=== PATIENT | female | born 1950 | race Caucasian/White ===

== ENCOUNTER 2020-04-24 14:36 | Emergency (ER) | payer MEDICARE, SELFPAY ==
[2020-04-24 15:01] VITALS: BP 166/81; PULSE 75; RESP 14; TEMP 36.8; O2SAT 98; BMI 26.4
--- NOTE | 2020-04-24 15:22 | HMH.EDUTC ---
[facility] [place] Disposition Clinical Impression: Viral upper respiratory illness Disposition: Home, Self-Care Condition on Discharge: Good Instructions: Sore Throat, Preventing the Spread of Coronavirus Discharge Instructions Additional Instructions: You was given handout on instructions for Self Quarantine and Self isolation while awaiting your COVID test results and what to do if they are positive, make sure to follow instructions carefully to help prevent the spread of COVID19 *Monitor Temp, Over the counter Motrin or Tylenol as directed/as needed Tylenol every 4 hours and Motrin every 6 hours (as long as your family doctor has told you that you can take it) for fever or pain. and straight to ER if unable to lower temp less than 101.0 after medication given *Warm salt water gargles may help to soothe the throat *Throat Lozenges *Warm fluids like tea with honey may help to soothe the throat *Sleep elevated *Humidifier/Vaporizer *Flonase 2 sprays in each nostril daily but be aware that it may take 2-3 days before you notice improvement Your throat swab was sent for culture. Those results are typically sent to your primary care. Be sure to follow up in 2-3 days with your family doctor/primary care physician if no improvement so they can review those result and treat if necessary. If you don?t have a primary care doctor, I recommend you get one but in the mean time, you will have to return to a walk in clinic Follow up IMMEDIATELY for new or worsening symptoms or no Noticeable improvement over the next 48-72 hours. 911 for difficulty breathing or swallowing Prescriptions: Fluticasone Propionate [Flonase 50mcg nasal spray 16gm] 1 - 2 spr NS DAILY #1 bottle Transmission Status: Received by [facility] #[id number] Referrals: Rima Cohn [Primary Care Provider] - As needed Forms: Work/School Release Time of Disposition: 15:41 Medical Decision Making - Kai Inquiry Pt receiving controlled substance: No Kai was queried for this patient: No Vital Signs: 04/24/20 15:01 Temperature 98.2 F Temperature Source Oral Pulse Rate [Right Brachial] 75 Respiratory Rate 14 Blood Pressure [Right Arm] 166/81 H Blood Pressure Mean [Right Arm] 109 Blood Pressure Source [Right Arm] Automatic Cuff Blood Pressure Position [Right Arm] Sitting 02 Sat by Pulse Oximetry 98 Oxygen Delivery Method Room Air - Lab Data Lab results reviewed: Yes: I reviewed the patient's lab results. Orders (Tests/Meds): ORDERS Category Date Time Status Coronavirus 19 Swab (OUTPT) Routine Lab 04/24/20 14:53 Received [facility] [place] HPI - General Stated complaint: Had strept 2 wks ago, sore throat,COVID exposure Time Seen by Provider: 04/24/20 15:22 Mode of Arrival: Ambulatory Source of Information: Patient Limitations: No Limitations Description of Symptoms (Recalled from Triage Doc. by RN): PATIENT C/O SORE THROAT. STATES SHE WAS EXPOSED TO COVID LAST WEEK AND IS REQUESTING A TEST HEENT Symptoms (Recalled from RN notes): Yes Resp Symptoms (Recalled from RN notes): No Skin Symptoms (Recalled from RN notes): No MS Symptoms (Recalled from RN notes): No Functional Status (Recalled from RN notes): WNL - History of Present Illness Provider Complaint: Patient states that she was seen and dx with strep throat about 2 weeks ago and got treated and it was doing better States that last week she was exposed to COVID19 by a coworker States that today she started having runny nose and burning in her throat again and not sure if she may have strep throat again or possibly have COVID so she wanted to get tested for both - Related Data Home Medications Medication Instructions Recorded Confirmed Levothyroxine Sodium 125 mcg PO DAILY 04/24/20 04/24/20 [Levothyroxine 125mcg (0.125mg) Tab] Primidone 50 mg PO BID 04/24/20 04/24/20 Previous Rx's Medication Instructions Recorded Fluticasone Propionate [Flonase 1 - 2 spr NS DAILY #1 bottle 04/24/20 50
[2020-04-24 15:40] VITALS: BP 166/81; PULSE 75; RESP 14; TEMP 36.8; O2SAT 98
[2020-04-24 21:13] LABS: UTC Strep Screen (Rapid) Negative (Negative)
== END 2020-04-24 15:43 | disposition home or self-care (01) ==
PROVIDERS: Emergency Provider Nurse Practitioner; PCP Internal Medicine
DX: J06.9 Acute upper respiratory infection, unspecified (principal); Z20.828 Contact with and (suspected) exposure to other viral communicable diseases; Z88.0 Allergy status to penicillin
CPT/HCPCS: G0463; 87880; 99202; U0003